=== PATIENT | male | born 1995 | race African-American/Black ===

== ENCOUNTER → 2019-10-11 | Outpatient (CLI) | payer BC | LOC: LAB 10:59 | PROVIDERS: ATTEND Physician Assistant | DX: Z20.828 Contact with and (suspected) exposure to other viral communicable diseases (principal) | CPT/HCPCS: 36415; 84484 ==

== ENCOUNTER 2021-02-22 17:10 | Emergency (ER) | payer BC, OTHER ==
[~2021-02-22] VITALS: Ht 198.1 cm; Wt 172.0 kg
[2021-02-22 18:25] VITALS: BP 152/84
[2021-02-22] MEDS ORDERED: AMOX1TAB61 PO (19:10)
--- NOTE | 2021-02-22 19:11 | PHYS DOC ---
Past History Past Surgical History: No Surgical History Alcohol Use: Rarely Adult General Chief Complaint Chief Complaint: ABSCESS HPI HPI Patient is an otherwise healthy 25-year-old male who presents with a chief complaint of abscess on his butt just above [place]rav[place] that has been there for several days. States that yesterday it actually burst open and has been draining. Was wondering if he needed antibiotics. Denies any fevers, traumas, chest pain, shortness of breath, nausea, vomiting. States he is eating and drinking normally. States he is making urine and stool normally for him. States this is not happened before. He thinks it probably happened because he shaved that area recently. Review of Systems Review of Systems Review of systems otherwise unremarkable except noted in HPI Physical Exam Physical Exam Constitutional: Well developed, well nourished, no acute distress, non-toxic appearance. [] HENT: Normocephalic, atraumatic, Eyes: conjunctiva normal, no discharge. [] Cardiovascular:Heart rate regular rhythm, no murmur [] Lungs & Thorax: Bilateral breath sounds clear to auscultation [] Abdomen:soft, no tenderness, no masses, no pulsatile masses Exam of buttocks, patient has a small fluctuant abscess, approximately 1 cm that is draining on its own with no induration or spread. [] Skin: Warm, dry, no erythema, no rash. [] Neurologic: Alert and oriented X 3, normal motor function, normal sensory function, no focal deficits noted. [] Psychologic: Affect normal, judgement normal, mood normal. [] Current Patient Data Vital Signs Vital Signs Date Time Temp Pulse Resp B/P (MAP) Pulse Ox O2 Delivery O2 Flow Rate FiO2 02/22/21 18:25 98.8 100 18 152/84 (106) 97 Room Air EKG EKG [] Radiology/Procedures Radiology/Procedures [] Heart Score C/O Chest Pain: No Risk Factors: Risk Factors: DM, Current or recent (<one month) smoker, HTN, HLP, family history of CAD, obesity. Risk Scores: Risk Factors: DM, Current or recent (<one month) smoker, HTN, HLP, family history of CAD, obesity. Course & Med Decision Making Course & Med Decision Making Patient is a 25-year-old male who presents with abscess that is already draining concern for need for antibiotics Vital signs nonconcerning. Physical exam noted above. No need for incision and/or drainage as it is already draining well. Significantly cleaned and disinfected area and bandaged. Started on antibiotics in the ED. Discussed symptom management at home. Discussed antibiotics. Advised to follow-up soon as he can with his primary care physician to update on ED visit. Gave return precautions to the ED. Dragon Disclaimer Dragon Disclaimer This electronic medical record was generated, in whole or in part, using a voice recognition dictation system. Departure Departure: Impression: Primary Impression: Abscess Disposition: HOME / SELF CARE / HOMELESS Condition: GOOD Referrals: PCP,NO (PCP) ELVER MCNAMARA MD Patient Instructions: Abscess Additional Instructions: Thank you for coming into the emergency department tonight and allowing us to take care of you. Please keep the area clean, dry and bandaged as we discussed and wear tight fitting underwear as to prevent your skin from rubbing together. Please take your antibiotics as prescribed. He can use Tylenol and ibuprofen as needed. Please follow-up with your primary care physician soon as you can update on ED visit and set up a follow-up. Please come back with new or concerning symptoms as discussed. Scripts Amoxicillin/Potassium Clav (AUGMENTIN [id number] TABLET) 1 Each Tablet 1 TAB PO BID for wound for 10 Days, #20 TAB 0 Refills Prov: HARSHAL GOMEZ MD 02/22/21 HARSHAL GOMEZ MD Feb 22, 2021 19:11
[2021-02-22] MEDS ORDERED: AMOXICILLIN/K CLAV 875/125MG TABLET. PO ONE (19:15)
== END 2021-02-22 19:33 | disposition home or self-care (01) ==
LOC: ER 17:10
DX: L02.31 Cutaneous abscess of buttock (principal)
CPT/HCPCS: 99283